=== PATIENT | male | born 1960 | race Caucasian/White ===

== ENCOUNTER 2018-11-03 15:22 | Observation (INO) ==
--- OUTSIDE RECORDS SUMMARY | 2018-11-03 15:25 | External Medical Summary | Continuity of Care Document ---
:1960 Author Name Godwin Krishnamurthy Address Unavailable Unavailable , Care Team Providers Name Role Phone NonMNPG M.D. Unavailable [email or web address] PCP, UNKNOWN Unavailable Unavailable Problems Active medical history not documented Allergies and Adverse Reactions Allergy history not documented Medications Medications not documented Procedures Procedures not documented Immunizations Immunizations not documented Plan of Treatment Planned Observations Planned Goals not documented Results No Known Results Results not documented
[2018-11-03 15:58] LABS: Basophils # (auto) 0.02 K/uL (0-0.2); Basophils % (auto) 0.2 %; Eosinophils # (auto) 0.35 K/uL (0-0.5); Eosinophils % (auto) 4.4 %; Hematocrit (blood only) 43.6 % (42-52); Hemoglobin 14.6 g/dL (14.0-18.0); Immature Granulocytes # (auto) 0.02 K/uL (0.00-0.02); Immature Granulocytes % (auto) 0.2 %; Lymphocytes % (auto) 29.9 %; Mean Corpuscular Hgb Conc 33.5 g/dL (32-36); Mean Corpuscular Volume 86.3 fL (80-100); Mean Platelet Volume 9.7 fL (7.4-10.4); Monocytes # (auto) 0.48 K/uL (0.11-0.59); Neutrophils # (auto) 4.77 K/uL (1.4-6.5); Neutrophils % (auto) 59.3 %; Platelet Count 147 K/uL (130-400); RDW Coefficient of Variation 14.8 % (11.5-14.5); RDW Standard Deviation 46.7 fL (36.4-46.3); Red Blood Count 5.05 M/uL (4.7-6.1); White Blood Count 8.04 K/uL (4.8-10.8)
[2018-11-03 16:10] LABS: Partial Thromboplastin Ratio 0.9; Partial Thromboplastin Time 25.5 Seconds (21.0-31.0); Prothrombin Time 10.7 Seconds (9.0-12.0)
--- NOTE | 2018-11-03 16:15 | XRay Report ---
XR chest 1V portable CLINICAL HISTORY: 58 years-old Male presenting with chest pain. TECHNIQUE: Portable upright AP view of the chest was obtained. COMPARISON: . FINDINGS: Image quality is degraded by portable technique and patient body habitus. Cardiomediastinal silhouette normal. No focal opacity. No large effusion or pneumothorax. Osseous str uctures normal. Upper abdomen normal. IMPRESSION: 1. No acute cardiopulmonary disease. Electronically signed by: Rocael Espinal M.D. 11/03/2018 4:14 PM
[2018-11-03 16:20] LABS: Alanine Aminotransferase 69 U/L (12-78); Albumin Level 3.1 gm/dl (3.4-5.0); Aspartate Aminotransferase 46 U/L (15-37); BUN Creatinine Ratio 12.6 (10-20); Blood Urea Nitrogen 12 mg/dl (7-18); Calcium 9.1 mg/dl (8.5-10.1); Carbon Dioxide 28 mmol/L (21-32); Chloride 106 mmol/L (98-107); Creatinine Clr Calc Pharmacy 158.8 ml/min; Est GFR (African American) 101.3; Est GFR (Non-African American) 87.4; Glucose 120 mg/dl (70-99); Potassium 4.2 mmol/L (3.5-5.1); Sodium 138 mmol/L (136-145)
[2018-11-03 16:27] LABS: Albumin Globulin Ratio 0.7 (0.9-2); Alkaline Phosphatase 78 U/L (45-117); Bilirubin,Total 0.4 mg/dl (0.2-1); Globulin 4.3 gm/dl (2.5-4.0); Total Protein 7.4 gm/dl (6.4-8.2); Troponin I < 0.015 ng/ml (0-0.045)
--- NOTE | 2018-11-03 17:59 | History & Physical Report ---
Date of Service November 03, 2018 Assessment & Plan (1) Crescendo angina: Observation with telemetry. Aspirin therapy. Cardiac echo. Serial troponins. Consult cardiology. Consider pharmacologic stress testing prior to discharge Present on Admission?: Yes (2) Type 2 diabetes mellitus: ADA diet. Sliding scale insulin coverage. Hold metformin in the event that cardiac catheterization is necessary (3) Morbid obesity: BMI greater than 40 (4) DVT prophylaxis: Lovenox subcu History of Present Illness Chief Complaint: Worsening chest pain Primary Care Provider: January Calzada 58-year-old male with type 2 diabetes and morbid obesity. He has been experiencing chest discomfort for the past several months that initially occurred only with exertion and was associated with shortness of breath and occasional diaphoresis. The symptoms appear to be occurring more frequently and now at rest. EKG reveals normal sinus rhythm with conduction delay but no acute changes. At the time of my examination the patient is asymptomatic. [facility]. We will consult cardiology to evaluate him, possibly for pharmacologic stress testing during this hospital stay Allergies Allergy/AdvReac Type Severity Reaction Status Date / Time Iodinated Contrast- Oral and Allergy Intermediate Seizures Verified 11/03/18 16:14 IV Dye iodine Allergy Intermediate Seizures Verified 11/03/18 16:14 Penicillins Allergy Intermediate Rash and Verified 11/03/18 16:14 Swelling aspirin Allergy Unknown Verified 11/03/18 16:16 tetracycline Allergy Unknown Verified 11/03/18 16:16 Sulfa (Sulfonamide AdvReac Mild Nausea Verified 11/03/18 16:16 Antibiotics) Home Medications Home Medications Medication Instructions Recorded Confirmed Type lisinopril 5 mg PO DAILY 11/03/18 11/03/18 History metformin 1,000 mg PO BID 11/03/18 11/03/18 History multivitamin [Multiple Vitamins] 1 tab PO DAILY 11/03/18 11/03/18 History Past Med/Surg History Medical History Cellulitis (Inactive) Pneumonia (Inactive) Diabetes Family History Other No pertinent family history in first degree relatives Social History Preferred Language: Armenian Communication Ability: Effective Feels Safe at Home: Yes Smoking Status: Never smoker Review of Systems Review of Systems: Constitutional-no fever or chills ENT-no blurred vision, no double vision, no epistaxis, no sore throat Respiratory-no cough, no wheezing, no shortness of breath Cardiac-no palpitations,no syncope. Chest pain at rest as described above GI-no nausea, vomiting, diarrhea, melena, hematochezia -no urinary retention, no urinary incontinence, no dysuria, no hematuria Musculoskeletal-no joint pain, no muscle tenderness Skin-no bruising, no rashes, no pruritus Neuro-no isolated weakness, no paresthesia, no weakness Psych-no depression, no anxiety. Physical Exam Physical Exam: General-alert and oriented x3, no fevers, no chills. Morbidly obese HEENT-head atraumatic and normocephalic, TMs intact bilaterally, pupils equal and reactive to light, extraocular muscles intact Neck-no lymphadenopathy or thyromegaly, trachea midline Chest-clear to auscultation percussion. No rales wheezing or rhonchi Cardiac-regular rate and rhythm, normal S1 and S2, no murmurs Abdomen-normal bowel sounds, nontender, no hepatosplenomegaly. Obese with massive panniculus. Extremities-no cyanosis, clubbing. Chronic bilateral lower extremity edema is unchanged. Chronic venous stasis changes noted Neuro-cranial nerves II through XII intact, motor and sensory function within normal limits, strength symmetrical 5/5, no focal deficits Psych-normal affect, normal mood Results & Data Vital Signs (Past 12 Hours) Vital Signs Temp Pulse Resp BP Pulse Ox 11/03/18 15:42 37.3 C 93 H 18 127/83 94 11/03/18 15:38 96 H 20 95 Laboratory Results 11/03/18 15:49 11/03/18 15:49 PG Care Time/CCT Total # of Minutes Spent Total Time Spent with Patient: Total time spent is greater than 50% in coordination of care (as documented) at patient's floor/unit and/or counseling patient:
[2018-11-03] MEDS ORDERED: ONDANSETRON INJ 2 MG/ML 2 ML VIAL IV PRN (19:25)
[2018-11-03] MEDS ORDERED: NITROGLYCERIN SL 0.4 MG/TAB TAB SL PRN (19:25)
[2018-11-03] MEDS ORDERED: ALUMINUM/MAGNESIUM SUSP 30 ML UDC PO PRN (19:25)
[2018-11-03] MEDS ORDERED: ACETAMINOPHEN 325 MG TAB PO PRN (19:25)
[2018-11-03] MEDS ORDERED: ENOXAPARIN INJ 40 MG/0.4 ML SYR SQ SCH (20:00)
[2018-11-03] MEDS: INSULIN ASPART 100 UNITS/ML 3 ML PEN SC SCH (20:29)
--- NOTE | 2018-11-04 02:18 | Emergency Department Note ---
Entered by Jacinto Pardo acting as a scribe for History of Present Illness General Chief complaint: Chest Pain Stated complaint: CHEST PAIN Time Seen by Provider: 11/03/18 16:11 Source: patient History of Present Illness Provider complaint: Chest pain Onset (ago): hour(s) (This morning) Location: chest Radiation: non-radiation Severity: similar to prior episodes Pain Consistency: + intermittent Relieved By: + none Exacerbated By: + none Associated symptoms: + cough, + diaphoresis and + shortness of breath; no fever/chills The patient is a 58 year old male who presents to the Emergency Room with complaints of intermittent left sided chest pain that occurred this morning while he was at work. He states the pain lasted for about 3-4 minutes before it resolved for 15 minutes and returned again. Currently the patient does not have any chest pains but did explain that during the episodes he became short of breath and diaphoretic. When today's episode occurred the patient was sitting at his desk. He denies recently eating or walking and states the pain occurs randomly. 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 The patient has no history of stress tests, COPD, asthma, or supplemental oxygen use. The patient also noted that he started complaining of this chest pain while at the wound clinic. He was there to get his groin area checked after just having an abscess drained there about a week ago. The patient states he never received his antibiotic after the drainage, but the area feels better. However he also noted that he has decreased sensation in his groin area following an abdominal surgery he had 10 years ago. The patient also is complaining of a dry cough that has been present for the past couple days, but he denies any fevers or chills. Home Medications Home Medications Medication Instructions Recorded Confirmed Type lisinopril 5 mg PO DAILY 11/03/18 11/03/18 History metformin 1,000 mg PO BID 11/03/18 11/03/18 History multivitamin [Multiple Vitamins] 1 tab PO DAILY 11/03/18 11/03/18 History Allergies Allergy/AdvReac Type Severity Reaction Status Date / Time Iodinated Contrast- Oral and Allergy Intermediate Seizures Verified 11/03/18 16:14 IV Dye iodine Allergy Intermediate Seizures Verified 11/03/18 16:14 Penicillins Allergy Intermediate Rash and Verified 11/03/18 16:14 Swelling aspirin Allergy Unknown Verified 11/03/18 16:16 tetracycline Allergy Unknown Verified 11/03/18 16:16 Sulfa (Sulfonamide AdvReac Mild Nausea Verified 11/03/18 16:16 Antibiotics) Past Med/Surg History Medical History Morbid obesity (Chronic) Type 2 diabetes mellitus (Chronic) Crescendo angina (Acute) Cellulitis (Inactive) Pneumonia (Inactive) Diabetes Family History Other No pertinent family history in first degree relatives Social History Preferred Language: Uzbek Communication Ability: Effective Beliefs That Will Affect Care: None Current Living Situation: Alone Other Information That Helps Us Care for You: No Feels Safe at Home: Yes Safety Concerns: Feels Safe At This Time Smoking Status: Never smoker Do You Dip or Chew Tobacco: No Second Hand Exposure: No Hx Alcohol Use: No Hx Substance Use: No Review of Systems See HPI for pertinent positives & negatives. and A total of 10 systems reviewed and were otherwise negative Physical Exam Vital Signs Vital Signs - 24 hr 11/03/18 15:27 11/03/18 15:38 11/03/18 15:42 Temperature 37.3 C Temperature Source Oral Sepsis Recent Fever Within 48 Hours No Sepsis New/Unexplained Change in Mental Status No Sepsis Action Taken by Nursing No Action Required Pulse Rate 95 H 92 H 93 H Pulse Rate from SpO2 Sensor 97 H 91 H Pulse Rhythm Regular Regular Pulse Strength Normal Respiratory Rate 15 14 18 Respiratory Effort / Characteristics Non-Labored Respiratory Depth Normal Respiratory Pattern Regular Blood Pressure 127/83 127/83 Blood Pressure Mean 97 97 Blood Pressure Position Sitting Pulse Oximetry 95 96 94 Oxygen Delivery Method Room Air Room Air 11/03/18 16:00 11/03/18 16:30 11/03/18 17:00 Temperature Temperature Source Sepsis Recent Fever Within 48 Hours Sepsis New/Unexplained Change in Mental Status Sepsis Action Taken by Nursing Pulse Rate 100 H 93 H 92 H Pulse Rate from SpO2 Sensor 97 H 98 H 93 H Pulse Rhythm Pulse Strength Respiratory Rate 18 21 19 Respiratory Effort / Characteristics Respiratory Depth Respiratory Pattern Blood Pressure Blood Pressure Mean Blood Pressure Position Pulse Oximetry 94 94 94 Oxygen Delivery Method 11/03/18 17:35 Temperature Temperature Source Sepsis Recent Fever Within 48 Hours Sepsis New/Unexplained Change in Mental Status Sepsis Action Taken by Nursing Pulse Rate 117 H Pulse Rate from SpO2 Sensor 111 H Pulse Rhythm Pulse Strength Respiratory Rate 29 H Respiratory Effort / Characteristics Respiratory Depth Respiratory Pattern Blood Pressure Blood Pressure Mean Blood Pressure Position Pulse Oximetry 95 Oxygen Delivery Method GENERAL: Awake, alert, well-appearing, in no distress. BMI of 58.7 HENT: Normocephalic, atraumatic. Oropharynx with dry mucous membranes and otherwise unremarkable. EYES: Normal conjunctiva. Sclera non-icteric. NECK: Supple. No nuchal rigidity. FROM. No JVD. RESPIRATORY: Diminished breath sounds at the bases and otherwise clear. CARDIAC: Regular rate, normal rhythm. Extremities warm and well perfused. Pulses equal. ABDOMEN: Soft, non-distended. No tenderness to palpation. No rebound or guarding. No masses. RECTAL: Deferred. MUSCULOSKELETAL: Chest examination reveals no tenderness. The back is symmetrical on inspection without obvious abnormality. There is no CVA tenderness to palpation. No joint edema. LOWER EXTREMITIES: Calves are equal size bilaterally and non-tender. 1+ BLE edema. No discoloration. NEURO: Normal sensorium. No sensory or motor deficits noted. SKIN: No rash or jaundice noted. Healed 1cm area of induration without warmth or discharge underneath right lateral pannis. Course 1630: The patient was evaluated in room C05, and a complete history and physical examination were performed. 1723: I spoke to Dr. Swathi Underwood [facility] Hospitalist about the patient's case and he is going to accept him for further evaluation. 1815: I updated the patient on the treatment plan and he is in agreement. Consultations Consultation #1: I spoke to Dr. Swathi Underwood [facility] Hospitalist about the patient's case and he is going to accept him for further evaluation. Time: 17:23 Administered Medications Enoxaparin Sodium (Lovenox) 40 mg SQ Q24H CHAD Stop: 12/03/18 19:59 Last Admin: 11/03/18 20:34 Dose: 40 mg Documented by: [id number] Insulin Aspart (Novolog Flexpen) 0 units SC ACHS CHAD Stop: 12/03/18 20:59 Last Admin: 11/03/18 20:29 Dose: Not Given Documented by: [id number] Cosigned by: [id number] Medical Decision Making Differential Diagnosis Differential diagnoses includes but is not limited to acute coronary syndrome, myocardial infarction, pericarditis, pulmonary embolus, aortic dissection, pneumonia, pneumothorax, musculoskeletal, shingles, esophageal. Medical Records Attestation: I reviewed the patient's medical records. Home Medications Current Medication List: was personally reviewed by me Laboratory Data Attestation: I reviewed the patient's lab results. Result diagrams: 11/03/18 15:49 11/03/18 15:49 Lab Results 11/03/18 11/03/18 11/03/18 Range/Units 15:49 15:49 15:49 WBC 8.04 (4.8-10.8) K/uL RBC 5.05 (4.7-6.1) M/uL Hgb 14.6 (14.0-18.0) g/dL Hct 43.6 (42-52) % MCV 86.3 (80-100) fL MCH 28.9 (25-34) pg MCHC 33.5 (32-36) g/dL RDW Std Deviation 46.7 H (36.4-46.3) fL RDW Coeff of Federico 14.8 H (11.5-14.5) % Plt Count 147 (130-400) K/uL MPV 9.7 (7.4-10.4) fL Immature Gran % (Auto) 0.2 % Neut % (Auto) 59.3 % Lymph % (Auto) 29.9 % Sevier % (Auto) 6.0 % Eos % (Auto) 4.4 % Baso % (Auto) 0.2 % Immature Gran # (Auto) 0.02 (0.00-0.02) K/uL Neut # (Auto) 4.77 (1.4-6.5) K/uL Lymph # (Auto) 2.40 (1.2-3.4) K/uL Sevier # (Auto) 0.48 (0.11-0.59) K/uL Eos # (Auto) 0.35 (0-0.5) K/uL Baso # (Auto) 0.02 (0-0.2) K/uL PT 10.7 (9.0-12.0) Seconds INR 1.0 (0.9-1.1) APTT 25.5 (21.0-31.0) Seconds PTT Ratio 0.9 Sodium 138 (136-145) mmol/L Potassium 4.2 (3.5-5.1) mmol/L Chloride 106 (98-107) mmol/L Carbon Dioxide 28 (21-32) mmol/L Anion Gap 4.0 (3-11) BUN 12 (7-18) mg/dl Creatinine 0.96 (0.6-1.4) mg/dl Est Cr Clr Drug Dosing 158.8 ml/min Est GFR ( Amer) 101.3 Est GFR (Non-Af Amer) 87.4 BUN/Creatinine Ratio 12.6 (10-20) Glucose 120 H (70-99) mg/dl Calcium 9.1 (8.5-10.1) mg/dl Phosphorus 3.0 (2.5-4.9) mg/dl Magnesium 2.0 (1.8-2.4) mg/dl Total Bilirubin 0.4 (0.2-1) mg/dl AST 46 H (15-37) U/L ALT 69 (12-78) U/L Alkaline Phosphatase 78 (45-117) U/L Troponin I < 0.015 (0-0.045) ng/ml Total Protein 7.4 (6.4-8.2) gm/dl Albumin 3.1 L (3.4-5.0) gm/dl Globulin 4.3 H (2.5-4.0) gm/dl Albumin/Globulin Ratio 0.7 L (0.9-2) Imaging Data Radiologist's Impression: Radiology results as stated below per my review and the radiologist's interpretation: XR chest 1V portable CLINICAL HISTORY: 58 years-old Male presenting with chest pain. TECHNIQUE: Portable upright AP view of the chest was obtained. COMPARISON: . FINDINGS: Image quality is degraded by portable technique and patient body habitus. Cardiomediastinal silhouette normal. No focal opacity. No large effusion or pneumothorax. Osseous structures normal. Upper abdomen normal. IMPRESSION: 1. No acute cardiopulmonary disease. Electronically signed by: Rocael Espinal M.D. 11/03/2018 4:14 PM ECG Data Attestation: I personally reviewed and interpreted this ECG as follows: Indication: chest pain Rate (beats per minute): 92 Rhythm: other (Atrial ectopic rhythm) Findings: + LAFB; no acute ischemic change Blood Pressure Blood Pressure Findings: Normal blood pressure MDM Narrative The patient is a pleasant 58-year-old gentleman with a past medical history of NIDDM 2, morbid obesity who presents to the emergency department referred from the OR clinic for evaluation of intermittent chest pain per hpi. Reports he had an episode this morning and also yesterday in the setting of similar symptoms over the past year which she feels has become more frequent. Patient denies any pattern that began with exertion and evolved to rest and therefore not consistent with anginal pattern. However he he does report today during his episode that he felt sweaty and short of breath. Patient reports that his PCP is aware of the symptoms and when he saw his provider last week and described them he was scheduled for a nuclear stress test at the OR in [place] next month. However, given the patient reports worsening symptoms this week he was referred to the emergency department. On arrival the patient denies any symptoms at this time. He is in no acute distress, afebrile stable vital signs. EKG appears consistent with atrial ectopic rhythm without overt acute ischemia. Chest x-ray negative for acute process. WBC, H/H, platelets wnl. Chemistry without acidosis. AST 46, nonspecific. Otherwise, LFTs and electrolytes unremarkable. Troponin negative. Heart score 4, moderate risk. Given the patient reports worsening frequency and severity of his symptoms reasonable to admit the patient for further management. Case d/w Dr. Echevarria, [facility] [place], who will evaluate the patient for admission. Impression & Plan Intermittent chest pain Discharge Plan Visit Data *Final* Discharge Date/Time: 11/03/18 18:48 Chief Complaint: Chest Pain Stated Complaint: CHEST PAIN ED Provider: Tone Suh Discharge Problem: Intermittent chest pain Patient Disposition: Admitted As Inpatient Discharge Instructions Interventions: ED Discharge Assessment Last Done: 11/03/18 18:48 The scribe's documentation has been prepared under my direction and personally reviewed by me in its entirety. I confirm that the note above accurately reflects all work, treatment, procedures, and medical decision making performed by me.
[2018-11-04] MEDS: INSULIN ASPART 100 UNITS/ML 3 ML PEN SC SCH ×3 (08:20→17:41)
[2018-11-04] MEDS ORDERED: ASPIRIN 81 MG ECTAB PO SCH (09:00)
[2018-11-04] MEDS ORDERED: MULTIVITAMIN TAB PO SCH (09:00)
[2018-11-04] MEDS ORDERED: LISINOPRIL 5 MG TAB PO SCH (09:00)
--- NOTE | 2018-11-04 10:06 | Cardiology Consultation ---
Date of Consultation November 04, 2018 Assessment & Plan (1) Intermittent chest pain: Patient presents with a 2 week history of intermittent chest pain associated with shortness of breath and diaphoresis. His discomfort appears to occur at random. His cardiac enzymes have been negative, and ECG shows no acute ischemic changes. He does have cardiovascular risk factors including hypertension and type 2 diabetes mellitus. It is therefore recommended that he undergo a dobutamine stress echocardiogram for further evaluation of myocardial ischemia. Will perform the study this afternoon. (2) Palpitations: He reports a 6 month history of intermittent palpitations described as a fluttering or flip flopping in his chest. He was noting the palpitations this morning, and telemetry monitoring shows sinus rhythm with occasional PVCs. His symptoms therefore appear secondary to the PVCs. No specific treatment indicated at this time, but he will undergo an echocardiogram for further evaluation of his LV size and systolic function. Patient discussed with Dr. Matute. Supervising Physician Co-Signing Physician Notes I saw and examined the patient at the bedside this afternoon agree with the documentation by Tanya BERNAL. I do not believe the symptoms he has described are consistent with angina or coronary insufficiency. They are not exertional in very atypical in character. Additionally, the dobutamine echocardiogram today demonstrated good augmentation of all segments with dobutamine infusion without overt evidence of ischemia. He did not have reproduction of his index symptoms with dobutamine infusion. He has some palpitations at times which suggest arrhythmia. He states that he has had several episodes of palpitations while he has been an inpatient. T elemetry monitoring reveals isolated PVCs on occasion. This is likely the etiology of his symptoms. I do not believe these require any specific treatment. At this point I would agree to discharge. I do not believe he requires any additional cardiac evaluation the absence of new or worsening symptoms. History of Present Illness Reason for Consultation: Chest pain Requesting Physician: Dr. Echevarria History of Present Illness Mr. Sánchez is a 58-year-old obese male with a past medical history significant for hypertension and type 2 diabetes mellitus who was admitted yesterday in the setting of chest pain. The patient reports that over the last 2 weeks, he has noted intermittent left- sided chest pain described as a pinching or pinprick sensation. The discomfort can radiate into his left jaw region, and he has associated diaphoresis and shortness of breath with the discomfort. The chest discomfort can occur at any time. It can occur with prolonged walking and is relieved within 15-20 minutes of rest. The discomfort does not occur every time he is active, though. It can also occur at rest and then last about 4-5 minutes in duration. He reports that since April, he has noted intermittent fluttering or flip flopping sensation in his chest. The palpitations occur at random and are associated with diaphoresis and dyspnea. The palpitations last about 2-10 minutes in duration. He states that he was ordered a nuclear stress test by his physician at the [facility] due to the palpitations, and he is scheduled for the study in November in [place]. He currently feels the palpitations this morning when being questioned. He reports some lightheadedness with exertion, but he denies syncope or presyncope. He denies orthopnea or PND. He reports chronic lymphedema. He denies abnormal bleeding such as melena, hematochezia, or hematuria. He denies cerebrovascular symptoms. As noted in HPI. All other ROS are reviewed and otherwise negative at this time. Past medical history: 1. Hypertension 2. Type 2 diabetes mellitus 3. Obesity 4. Right shoulder surgery Family history: No family history of premature CAD. Social history: He denies smoking, alcohol, or illicit drug use. Allergies Allergy/AdvReac Type Severity Reaction Status Date / Time Iodinated Contrast- Oral and Allergy Intermediate Seizures Verified 11/03/18 16:14 IV Dye iodine Allergy Intermediate Seizures Verified 11/03/18 16:14 Penicillins Allergy Intermediate Rash and Verified 11/03/18 16:14 Swelling aspirin Allergy Unknown Verified 11/03/18 16:16 tetracycline Allergy Unknown Verified 11/03/18 16:16 Sulfa (Sulfonamide AdvReac Mild Nausea Verified 11/03/18 16:16 Antibiotics) Home Medications Home Medications Medication Instructions Recorded Confirmed Type lisinopril 5 mg PO DAILY 11/03/18 11/03/18 History metformin 1,000 mg PO BID 11/03/18 11/03/18 History multivitamin [Multiple Vitamins] 1 tab PO DAILY 11/03/18 11/03/18 History aspirin [Ecotrin Low Strength] 81 mg PO QAM #30 tab 11/04/18 Rx metoprolol succinate 25 mg PO HS #30 tab 11/04/18 Rx naproxen 500 mg PO BID #10 tab 11/04/18 Rx Patient History Medical History Morbid obesity (Chronic) Type 2 diabetes mellitus (Chronic) Crescendo angina (Acute) Cellulitis (Inactive) Pneumonia (Inactive) Diabetes Family History Other No pertinent family history in first degree relatives Social History Preferred Language: [place] Communication Ability: Effective Beliefs That Will Affect Care: None Current Living Situation: Alone Other Information That Helps Us Care for You: No Feels Safe at Home: Yes Safety Concerns: Feels Safe At This Time Smoking Status: Never smoker Do You Dip or Chew Tobacco: No Second Hand Exposure: No Hx Alcohol Use: No Hx Substance Use: No Physical Exam Physical Exam: Constitutional: Alert, oriented, in no acute distress HEENT: Head is atraumatic and normocephalic. EOMs intact. Sclera anicteric. Face is symmetric. No perioral cyanosis. Mucous membranes moist. Neck: Supple, difficult to assess JVP due to thick neck, no carotid bruits Pulmonary: Normal respiratory effort, clear to auscultation bilaterally Cardiac: Regular rate and rhythm, occasional ectopy, normal S1 and S2, no gallops, no rubs, no murmurs Extremities: No clubbing, cyanosis, or pitting edema. Pulses 2+ and symmetric Abdomen: Obese. Normal bowel sounds, soft, non-tender, no abdominal mass palpated Skin: Chronic venous stasis skin changes of right lower extremity. No rash or skin lesions Neurological: Oriented to person, place, and time Results & Data Vital Signs (Past 12 Hours) Vital Signs Temp Pulse Pulse Pulse Resp BP Pulse Ox 11/04/18 08:00 79 11/04/18 07:03 36.6 C 72 18 138/80 95 11/04/18 03:37 36.6 C 78 19 143/80 H 93 11/03/18 23:43 36.7 C 83 17 133/74 94 Laboratory Results Laboratory Results WBC 8.04 K/uL (4.8-10.8) 11/03/18 15:49 RBC 5.05 M/uL (4.7-6.1) 11/03/18 15:49 Hgb 14.6 g/dL (14.0-18.0) 11/03/18 15:49 Hct 43.6 % (42-52) 11/03/18 15:49 MCV 86.3 fL (80-100) 11/03/18 15:49 MCH 28.9 pg (25-34) 11/03/18 15:49 MCHC 33.5 g/dL (32-36) 11/03/18 15:49 RDW Std Deviation 46.7 fL (36.4-46.3) H 11/03/18 15:49 RDW Coeff of Federico 14.8 % (11.5-14.5) H 11/03/18 15:49 Plt Count 147 K/uL (130-400) 11/03/18 15:49 MPV 9.7 fL (7.4-10.4) 11/03/18 15:49 Immature Gran % (Auto) 0.2 % 11/03/18 15:49 Neut % (Auto) 59.3 % 11/03/18 15:49 Lymph % (Auto) 29.9 % 11/03/18 15:49 [place] % (Auto) 6.0 % 11/03/18 15:49 Eos % (Auto) 4.4 % 11/03/18 15:49 Baso % (Auto) 0.2 % 11/03/18 15:49 Immature Gran # (Auto) 0.02 K/uL (0.00-0.02) 11/03/18 15:49 Neut # (Auto) 4.77 K/uL (1.4-6.5) 11/03/18 15:49 Lymph # (Auto) 2.40 K/uL (1.2-3.4) 11/03/18 15:49 [place] # (Auto) 0.48 K/uL (0.11-0.59) 11/03/18 15:49 Eos # (Auto) 0.35 K/uL (0-0.5) 11/03/18 15:49 Baso # (Auto) 0.02 K/uL (0-0.2) 11/03/18 15:49 PT 10.7 Seconds (9.0-12.0) 11/03/18 15:49 INR 1.0 (0.9-1.1) 11/03/18 15:49 APTT 25.5 Seconds (21.0-31.0) 11/03/18 15:49 PTT Ratio 0.9 11/03/18 15:49 Sodium 138 mmol/L (136-145) 11/03/18 15:49 Potassium 4.2 mmol/L (3.5-5.1) 11/03/18 15:49 Chloride 106 mmol/L (98-107) 11/03/18 15:49 Carbon Dioxide 28 mmol/L (21-32) 11/03/18 15:49 Anion Gap 4.0 (3-11) 11/03/18 15:49 BUN 12 mg/dl (7-18) 11/03/18 15:49 Creatinine 0.96 mg/dl (0.6-1.4) 11/03/18 15:49 Est Cr Clr Drug Dosing 158.8 ml/min 11/03/18 15:49 Est GFR ( Amer) 101.3 11/03/18 15:49 Est GFR (Non-Af Amer) 87.4 11/03/18 15:49 BUN/Creatinine Ratio 12.6 (10-20) 11/03/18 15:49 Glucose 120 mg/dl (70-99) H 11/03/18 15:49 POC Glucose 136 (70-99) H 11/04/18 07:07 Calcium 9.1 mg/dl (8.5-10.1) 11/03/18 15:49 Phosphorus 3.0 mg/dl (2.5-4.9) 11/03/18 15:49 Magnesium 2.0 mg/dl (1.8-2.4) 11/03/18 15:49 Total Bilirubin 0.4 mg/dl (0.2-1) 11/03/18 15:49 AST 46 U/L (15-37) H 11/03/18 15:49 ALT 69 U/L (12-78) 11/03/18 15:49 Alkaline Phosphatase 78 U/L (45-117) 11/03/18 15:49 Troponin I < 0.015 ng/ml (0-0.045) 11/04/18 06:39 Total Protein 7.4 gm/dl (6.4-8.2) 11/03/18 15:49 Albumin 3.1 gm/dl (3.4-5.0) L 11/03/18 15:49 Globulin 4.3 gm/dl (2.5-4.0) H 11/03/18 15:49 Albumin/Globulin Ratio 0.7 (0.9-2) L 11/03/18 15:49 Diagnostic Findings ECGs reviewed and show normal sinus rhythm, left anterior fascicular block, PVC. No acute ST-T wave abnormality. CXR: No acute cardiopulmonary disease. Telemetry: Sinus rhythm in the 70s-80s. PVCs.
[2018-11-04] MEDS ORDERED: METOPROLOL TARTRATE 1 MG/ML VIAL IV ONE (11:11)
[2018-11-04] MEDS ORDERED: ATROPINE SULFATE 0.1 MG/ML 10ML SYR IV ONE (11:11)
[2018-11-04] MEDS ORDERED: DOBUTamine HCL 12.5 MG/ML 20 ML VIAL IV ONE (11:11)
[2018-11-04] MEDS ORDERED: ACETAMINOPHEN 325 MG TAB PO STA (14:08)
--- NOTE | 2018-11-12 10:39 | Discharge Summary ---
Date of Service November 04, 2018 Admission HPI Per Admitting Provider 58-year-old male with type 2 diabetes and morbid obesity. He has been experiencing chest discomfort for the past several months that initially occurred only with exertion and was associated with shortness of breath and occasional diaphoresis. The symptoms appear to be occurring more frequently and now at rest. EKG reveals normal sinus rhythm with conduction delay but no acute changes. At the time of my examination the patient is asymptomatic. [facility]. We will consult cardiology to evaluate him, possibly for pharmacologic stress testing during this hospital stay Principal Diagnosis non cardiac chest pain Discharge Exam General-alert and oriented x3, no fevers, no chills. Morbidly obese HEENT-head atraumatic and normocephalic, TMs intact bilaterally, pupils equal and reactive to light, extraocular muscles intact Neck-no lymphadenopathy or thyromegaly, trachea midline Chest-clear to auscultation percussion. No rales wheezing or rhonchi Cardiac-regular rate and rhythm, normal S1 and S2, no murmurs Abdomen-normal bowel sounds, nontender, no hepatosplenomegaly. Obese with massive panniculus. Extremities-no cyanosis, clubbing. Chronic bilateral lower extremity edema is unchanged. Chronic venous stasis changes noted Neuro-cranial nerves II through XII intact, motor and sensory function within normal limits, strength symmetrical 5/5, no focal deficits Psych-normal affect, normal mood Discharge Data Allergies Allergy/AdvReac Type Severity Reaction Status Date / Time Iodinated Contrast- Oral and Allergy Intermediate Seizures Verified 11/03/18 16:14 IV Dye iodine Allergy Intermediate Seizures Verified 11/03/18 16:14 Penicillins Allergy Intermediate Rash and Verified 11/03/18 16:14 Swelling aspirin Allergy Unknown Verified 11/03/18 16:16 tetracycline Allergy Unknown Verified 11/03/18 16:16 Sulfa (Sulfonamide AdvReac Mild Nausea Verified 11/03/18 16:16 Antibiotics) Consultations 11/03/18 17:25 ED Decision to Admit Stat 11/03/18 19:25 Consult Cardiology Routine Hospital Course (1) Crescendo angina: Observation with telemetry. Aspirin therapy. Cardiac echo. Serial troponins. Consult cardiology. Consider pharmacologic stress testing prior to discharge; Patient had stress test whci was negative. Echo cardiohgram was also completed. Please refer to official report. Patient will be discharged on low dose of beta bettie, as well as short course of NSAID. bETA BETTIE SHOULD HELP WITH SYMPTOMS OF pvc. mAY EVEN CONSIDER TITRATING DOWN. Side effects were discussed. Possibility of musculoskeletal source of his pain. Doubt cardiac in nature. (2) Type 2 diabetes mellitus: ADA diet. Sliding scale insulin coverage. Hold metformin in the event that cardiac catheterization is necessary (3) Morbid obesity: BMI greater than 40 (4) DVT prophylaxis: Lovenox subcu Total Time Total Time Spent Total Time Spent (In Minutes): 31 Total Time Includes: Examination of the Patient, Discharge Planning and Medication Reconciliation Discharge Plan Discharge Items Patient Disposition: Home - Self-Care Reason For Visit: CHEST PAIN Discharge Diagnosis: Chest pain Discharge Goals: Decrease discomfort Activity: Resume your previous activity Non-emergency contact: Primary Care Provider Call non-emergency contact if: you have any medication questions Follow-up/Referrals: January Calzada PA-C [Primary Care Provider] - Diet: Regular Addtl Provider Instructions: You were seen for chest pain. IMAGING WAS NORMAL, including x-ray and ultrasound of your heart. Stress test was also normal. In regards to your pain, we may consider a short term course of an antiinflammatory medicine: 5 days. In regards to your palpitations, will place you on a medicine to help decrease that. Take medicine on a full stomach, especially motrin as it may cause stomach irritation. In some cases, bleeding. Risk is larger if taking drug for longer periods. You will only be taking medicine for 5 days. Will have you followup with PCP and cardio. Prescriptions: New aspirin [Ecotrin Low Strength] 81 mg Tablet,Delayed Release (Dr/Ec) 81 mg PO QAM Qty: 30 RF: 0 metoprolol succinate 25 mg tablet extended release 24 hr 25 mg PO HS Qty: 30 RF: 0 naproxen 500 mg tablet 500 mg PO BID Qty: 10 RF: 0 Continued lisinopril 5 mg tablet 5 mg PO DAILY RF: 0 metformin 1,000 mg tablet 1,000 mg PO BID RF: 0 multivitamin [Multiple Vitamins] Tablet 1 tab PO DAILY RF: 0 Stand-Alone Forms: [facility] Discharge Orders: Discharge Order (Routine); Ordered 11/04/18 Ordered By: Kyle Aj Admission Data Admit Date/Time: 11/03/18 17:58 Attending Provider: Kyle Aj Admit Provider: Jacinto Echevarria Primary Care Provider: January Calzada Other Providers: Jacinto Echevarria ; Arturo Briseno ; Shiva Sandra ; Mickey Mason ; Jone Bates ; Pineda Ortiz Jr ; Zack Chavez ; Mitra Desai ; Tanya Hawkins ; Mohit Coleman ; Mohit Matute ; Stew Barrios ; Jacinto Barron ; Nolvia Gandhi ; Mallory Anders Service: Telemetry Other Interventions: Discharge Summary Assessment (RN) Last Done: 11/04/18 19:39 DC Date/Time DO NOT enter until pt leaves facility: 11/04/18 20:08
== END 2018-11-04 20:08 | disposition home or self-care (01) ==
LOC: ED 15:22 → 2S 15:22 → SUATTDRO 17:58 → 2S 18:48

== ENCOUNTER 2018-11-23 07:22 | Observation (INO) ==
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
[2018-11-23] MEDS ORDERED: methylPREDNISolone 125 MG/2 ML VIAL IV STA (08:15)
[2018-11-23] MEDS ORDERED: DiphenhydrAMINE HCL 50 MG/ML VIAL IV STA (08:15)
[2018-11-23] MEDS ORDERED: FAMOTIDINE 20MG IV PUSH 20 MG/5 ML SYR IV STA (08:15)
[2018-11-23 08:45] LABS: Basophils # (auto) 0.02 K/uL (0-0.2); Basophils % (auto) 0.3 %; Eosinophils % (auto) 4.7 %; Hematocrit (blood only) 45.6 % (42-52); Immature Granulocytes # (auto) 0.02 K/uL (0.00-0.02); Immature Granulocytes % (auto) 0.3 %; Lymphocytes # (auto) 1.67 K/uL (1.2-3.4); Lymphocytes % (auto) 26.3 %; Mean Corpuscular Hgb Conc 32.9 g/dL (32-36); Mean Corpuscular Volume 89.2 fL (80-100); Mean Platelet Volume 9.3 fL (7.4-10.4); Monocytes # (auto) 0.48 K/uL (0.11-0.59); Monocytes % (auto) 7.6 %; Neutrophils # (auto) 3.85 K/uL (1.4-6.5); Neutrophils % (auto) 60.8 %; Platelet Count 147 K/uL (130-400); RDW Coefficient of Variation 14.5 % (11.5-14.5); RDW Standard Deviation 47.5 fL (36.4-46.3); Red Blood Count 5.11 M/uL (4.7-6.1); White Blood Count 6.34 K/uL (4.8-10.8)
[2018-11-23 09:02] LABS: Alanine Aminotransferase 69 U/L (12-78); Albumin Level 2.9 gm/dl (3.4-5.0); Aspartate Aminotransferase 48 U/L (15-37); BUN Creatinine Ratio 19.3 (10-20); Blood Urea Nitrogen 19 mg/dl (7-18); Calcium 9.9 mg/dl (8.5-10.1); Carbon Dioxide 29 mmol/L (21-32); Chloride 104 mmol/L (98-107); Creatinine Clr Calc Pharmacy 155.4 ml/min; Est GFR (Non-African American) 86.3; Glucose 131 mg/dl (70-99); Potassium 4.5 mmol/L (3.5-5.1); Sodium 141 mmol/L (136-145)
[2018-11-23 09:06] LABS: Albumin Globulin Ratio 0.7 (0.9-2); Alkaline Phosphatase 79 U/L (45-117); Bilirubin,Total 0.4 mg/dl (0.2-1); Globulin 4.4 gm/dl (2.5-4.0); Total Protein 7.3 gm/dl (6.4-8.2); Troponin I < 0.015 ng/ml (0-0.045)
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
[2018-11-23] MEDS ORDERED: OPTIRAY 320 125ml IV PRN (09:54)
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
[2018-11-23 10:27] LABS: Appearance Urine Clear (Clear); Bilirubin Urine Negative (Negative); Blood Urine Negative (Negative); Color Urine Yellow; Glucose Urine UA Negative (Negative); Ketones Urine Negative (Negative); Leukocyte Esterase Urine Negative (Negative); Nitrite Urine Negative (Negative); Protein Urine Negative (Negative); Specific Gravity Urine 1.027 (1.000-1.030); Urobilinogen Urine Negative (Negative)
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
[2018-11-23 11:47] LABS: iSTAT Blood Urea Nitrogen 19 mg/dl (7-18); iSTAT Carbon Dioxide < 5 mEq/l (24-31); iSTAT Chloride 101 mEq/L (101-112); iSTAT Glucose 134 mg/dl (70-99); iSTAT Hematocrit 45 % (42-52); iSTAT Hemoglobin 15.3 g/dl (14.0-18.0); iSTAT Ionized Calcium 1.24 mmol/l (1.12-1.32); iSTAT Potassium 4.6 mEq/L (3.3-5.0); iSTAT Sodium 141 mEq/L (135-144)
[2018-11-23] MEDS ORDERED: CYCLOBENZAPRINE HCL 10 MG TAB PO STA (11:50)
[2018-11-23] MEDS ORDERED: MoRPHine SULFATE 10 MG/ML CARP/VIAL IV STA (11:50)
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
[2018-11-23] MEDS ORDERED: ALUMINUM/MAGNESIUM SUSP 30 ML UDC PO PRN (17:58)
[2018-11-23] MEDS ORDERED: MAGNESIUM HYDROXIDE SUSP 30 ML UDC PO PRN (17:58)
[2018-11-23] MEDS ORDERED: GLUCOSE 40% GEL 15 GM TUBE PO PRN (17:58)
[2018-11-23] MEDS ORDERED: GLUCOSE 10 TABS/TUBE PO PRN (17:58)
[2018-11-23] MEDS ORDERED: CARBOHYDRATES FOR HYPOGLYCEMIA PO PRN (17:58)
[2018-11-23] MEDS ORDERED: POLYETHYLENE (MIRALAX) 17 GM PACK PO PRN (17:58)
[2018-11-23] MEDS ORDERED: GLUCAGON FOR INJ 1 MG VIAL SQ PRN (17:58)
[2018-11-23] MEDS ORDERED: DEXTROSE 50% 50 ML SYRINGE IV PRN (17:58)
[2018-11-23] MEDS ORDERED: ACETAMINOPHEN 325 MG TAB PO PRN (17:58)
[2018-11-23] MEDS ORDERED: ACETAMINOPHEN 500 MG TAB PO PRN (17:58)
[2018-11-23] MEDS ORDERED: PHARMACY GLYCEMIC MGMT CONSULT PRN (18:30)
[2018-11-23] MEDS: INSULIN ASPART 100 UNITS/ML 3 ML PEN SC SCH ×2 (19:13→20:26)
[2018-11-23] MEDS ORDERED: INSULIN GLARGINE SOLOSTAR 100 UNITS/ML 3 ML PEN SC STA (20:48)
[2018-11-23] MEDS ORDERED: MICONAZOLE NITRATE POWDER 43 GM EXT PRN (21:24)
[2018-11-24 06:15] LABS: Basophils # (auto) 0.01 K/uL (0-0.2); Basophils % (auto) 0.1 %; Eosinophils # (auto) 0.03 K/uL (0-0.5); Eosinophils % (auto) 0.4 %; Hematocrit (blood only) 46.5 % (42-52); Hemoglobin 15.3 g/dL (14.0-18.0); Immature Granulocytes # (auto) 0.03 K/uL (0.00-0.02); Immature Granulocytes % (auto) 0.4 %; Lymphocytes # (auto) 1.42 K/uL (1.2-3.4); Lymphocytes % (auto) 18.8 %; Mean Corpuscular Hgb Conc 32.9 g/dL (32-36); Mean Corpuscular Volume 88.4 fL (80-100); Mean Platelet Volume 9.7 fL (7.4-10.4); Monocytes # (auto) 0.46 K/uL (0.11-0.59); Monocytes % (auto) 6.1 %; Neutrophils # (auto) 5.62 K/uL (1.4-6.5); Neutrophils % (auto) 74.2 %; Platelet Count 138 K/uL (130-400); RDW Coefficient of Variation 14.5 % (11.5-14.5); RDW Standard Deviation 46.7 fL (36.4-46.3); Red Blood Count 5.26 M/uL (4.7-6.1); White Blood Count 7.57 K/uL (4.8-10.8)
[2018-11-24 06:40] LABS: Alanine Aminotransferase 63 U/L (12-78); Aspartate Aminotransferase 34 U/L (15-37); BUN Creatinine Ratio 15.4 (10-20); Bilirubin Direct < 0.1 mg/dl (0-0.2); Blood Urea Nitrogen 16 mg/dl (7-18); Carbon Dioxide 30 mmol/L (21-32); Chloride 103 mmol/L (98-107); Creatinine Clr Calc Pharmacy 134.6 ml/min; Est GFR (African American) 88.8; Est GFR (Non-African American) 76.7; Glucose 138 mg/dl (70-99); Sodium 139 mmol/L (136-145)
[2018-11-24 06:45] LABS: Alkaline Phosphatase 67 U/L (45-117); Bilirubin,Total 0.3 mg/dl (0.2-1); Total Protein 7.3 gm/dl (6.4-8.2); Troponin I < 0.015 ng/ml (0-0.045)
[2018-11-24 07:30] LABS: Estimated Average Glucose 154 mg/dl
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
[2018-11-24] MEDS: OXYCODONE/ACETAMINOPHEN 5mg/325mg TAB PO PRN ×4 (08:20→22:06)
[2018-11-24] MEDS: LISINOPRIL 5 MG TAB PO SCH (08:21)
[2018-11-24] MEDS: MULTIVITAMIN TAB PO SCH (08:21)
[2018-11-24] MEDS: INSULIN ASPART 100 UNITS/ML 3 ML PEN SC SCH ×4 (08:22→21:26)
[2018-11-24] MEDS: ASPIRIN 81 MG ECTAB PO SCH (09:47)
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
[2018-11-25] MEDS: MULTIVITAMIN TAB PO SCH (07:45)
[2018-11-25] MEDS: ASPIRIN 81 MG ECTAB PO SCH (07:46)
[2018-11-25] MEDS: LISINOPRIL 5 MG TAB PO SCH (07:46)
[2018-11-25] MEDS: INSULIN ASPART 100 UNITS/ML 3 ML PEN SC SCH ×2 (08:43→12:58)
[2018-11-25] MEDS ORDERED: MICONAZOLE NITRATE POWDER 43 GM EXT PRN (10:01)
[2018-11-25] MEDS: OXYCODONE/ACETAMINOPHEN 5mg/325mg TAB PO PRN ×2 (10:23→15:47)
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
[2018-11-26] MEDS ORDERED: METFORMIN HCL 850 MG TAB PO SCH (08:00)
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
== END 2018-11-25 17:30 ==
LOC: ED 07:22 → 4E 07:22 → SUATTDRO 16:24 → 4E 17:38